=== PATIENT | female | born 1995 | race Hispanic/Latino ===

== ENCOUNTER 2016-08-17 21:05 | Emergency (ER) | payer MEDICAID ==
[2016-08-17 21:13] VITALS: BMI 31.8
[2016-08-17] MEDS ORDERED: Sodium Chloride 0.9% 1,000 ML IV STA (21:29)
--- NOTE | 2016-08-17 21:34 | ED PDOC ---
Arrival/HPI <Rajesh Morgan - Last Filed: 08/17/16 22:29> - General Historian: Patient <Scott Tarango - Last Filed: 08/18/16 00:40> - General Chief Complaint: Chest Pain Time Seen by Provider: 08/17/16 21:17 - History of Present Illness Narrative History of Present Illness (Text): 08/17/16 21:31 20 y/o female, pmh including tonsillitis, nkda, c/o epigastric pain with nausea/ vomiting x 2 days. Pt. stated that she has been having morning sickness for the past few days, been having burning epigastric pain with nausea and couple vomiting. Pt. has been having pelvic cramp on and off with the lower back soreness, no urinary symptoms, no vaginal bleeding or discharge, no headache or night sweat, no palpitation, no rash, no change in vision, no other medical or psychological complaints. (Scott Tarango) Past Medical History - Provider Review Nursing Documentation Reviewed: Yes - Past History Past History: No Previous - Infectious Disease Hx of Infectious Diseases: None - Tetanus Immunization Tetanus Immunization: Up to Date - Cardiac Hx Cardiac Disorders: No - Pulmonary Hx Asthma: Yes - Neurological Hx Neurological Disorder: No - HEENT Hx HEENT Disorder: Yes (tonsilitis, peritonsilar abscess) Other/Comment: tonsillectomy and adenoidectomy 12/2014 - Renal Hx Renal Disorder: No - Endocrine/Metabolic Hx Endocrine Disorders: No - Hematological/Oncological Hx Blood Disorders: No - Integumentary Hx Dermatological Disorder: No - Musculoskeletal/Rheumatological Hx Musculoskeletal Disorders: No Hx Falls: No - Gastrointestinal Hx Gastrointestinal Disorders: No - Genitourinary/Gynecological Other/Comment: pt takes bcp to regulate menstrual cycle daily - Psychiatric Hx Psychophysiologic Disorder: No Hx Depression: No Hx Emotional Abuse: No Hx Physical Abuse: No Hx Substance Use: No - Past Surgical History Past Surgical History: No Previous - Surgical History Hx Tonsillectomy: Yes Other/Comment: tonsillectomy and adenoidectomy 12/2014 - Anesthesia Hx Anesthesia: No Hx Anesthesia Reactions: No Hx Malignant Hyperthermia: No - Suicidal Assessment Feels Threatened In Home Enviroment: No <Scott Tarango - Last Filed: 08/18/16 00:40> Family/Social History - Physician Review Nursing Documentation Reviewed: Yes Family/Social History: Unknown Family HX Smoking Status: Never Smoked Hx Alcohol Use: No Hx Substance Use: No Hx Substance Use Treatment: No <Scott Tarango - Last Filed: 08/18/16 00:40> Allergies/Home Meds <Rajesh Morgan - Last Filed: 08/17/16 22:29> <Scott Tarango - Last Filed: 08/18/16 00:40> Allergies/Adverse Reactions: Allergies No Known Allergies Allergy (Verified 06/25/15 05:11) Home Medications: Home Meds Medication Instructions Recorded Confirmed Ondansetron ODT [Zofran ODT] 8 mg PO PRN PRN 08/17/16 08/17/16 Review of Systems - Review of Systems Constitutional: absent: Fatigue, Fevers Eyes: absent: Vision Changes ENT: absent: Hearing Changes Respiratory: absent: SOB, Cough Cardiovascular: absent: Chest Pain Gastrointestinal: Abdominal Pain, Nausea, Vomiting. absent: Diarrhea Genitourinary Female: absent: Dysuria, Frequency, Hematuria, Urine Output Changes, Vaginal Bleeding, Vaginal Discharge Musculoskeletal: Back Pain. absent: Arthralgias, Neck Pain, Joint Swelling, Myalgias Skin: absent: Rash, Pruritis, Skin Lesions Neurological: absent: Headache, Dizziness, Focal Weakness <Scott Tarango - Last Filed: 08/18/16 00:40> Physical Exam Vital Signs Reviewed: Yes Temperature: Afebrile Blood Pressure: Normal Pulse: Regular Respiratory Rate: Normal Appearance: Positive for: Well-Appearing, Non-Toxic, Comfortable Pain Distress: Mild Mental Status: Positive for: Alert and Oriented X 3 - Systems Exam Head: Present: Atraumatic, Normocephalic Pupils: Present: PERRL Extroacular Muscles: Present: EOMI Conjunctiva: Present: Normal Ears: Present: NORMAL TM, Normal Canal. No: Erythema Mouth: Present: Moist Mucous Membranes Neck: Present: Normal Range of Motion Respiratory/Chest: Present: Clear to Auscultation, Good Air Exchange. No: Respiratory Distress, Accessory Muscle Use Cardiovascular: Present: Regular Rate and Rhythm, Normal S1, S2. No: Murmurs Abdomen: Present: Tenderness (mild epigastric tenderness,), Normal Bowel Sounds. No: Distention, Peritoneal Signs, Rebound, Guarding Genitourinary/Pelvic Exam: Present: Other (Pt. deferred. ) Back: Present: Normal Inspection. No: CVA Tenderness, Midline Tenderness, Paraspinal Tenderness Upper Extremity: Present: Normal Inspection. No: Cyanosis, Edema Lower Extremity: Present: Normal Inspection. No: Edema Neurological: Present: GCS=15, Speech Normal, Gait Normal, Memory Normal Skin: Present: Warm, Dry, Normal Color. No: Rashes Psychiatric: Present: Alert, Oriented x 3, Normal Insight, Normal Concentration <Scott Tarango - Last Filed: 08/18/16 00:40> Vital Signs Pulse Resp BP Pulse Ox 08/17/16 21:06 79 14 125/73 99 Medical Decision Making <Rajesh Morgan - Last Filed: 08/17/16 22:29> - Lab Interpretations Interpretation: Abnormal lab values (beta hcg 68967) - RAD Interpretation [place] Slabs: Radiologist <Scott Tarango - Last Filed: 08/18/16 00:40> ED Course and Treatment: 08/17/16 21:34 -labs/ua/beta hcg/type and screen -IVF/pepcid/reglan -EKG -Observe and reassess 08/18/16 00:09 -EKG: NSR @ 76 BPM, no ST elevation or depression, no T wave inversion. -Labs are non-significant, lipase within normal limit -Beta hcg 51905 -Sonogram show no acute traumatic findings, 11 weeks and 6 days, FHR 162 BPM -Pain resolved. Pt. has no epigastric and no pelvic pain. -Pt. refused the type and screen as she just had it done last week which she is assure that she is O positive, there is no active bleeding. -Discharge home with macrobid, education on avoid acidic/sour/spicy/fried/ grilled food or drinks, avoid eating 2 hours before sleeping, stay hydrated, follow up with your own pmd and GI within 2 days, return to the ER for any new or worsening signs or symptoms. (Scott Tarango) - Lab Interpretations Lab Results: 08/17/16 21:49 08/17/16 21:49 Lab Results 08/17/16 23:40: Urine Color Yellow, Urine Appearance Sl cloudy, Urine pH 7.0, Ur Specific [place] 1.020, Urine Protein Negative, Urine Glucose (UA) Negative, Urine Ketones Negative, Urine Blood Trace-intact H, Urine Nitrate Negative, Urine Bilirubin Negative, Urine Urobilinogen 0.2, Ur Leukocyte Esterase Moderate H, Urine RBC 0 - 2, Urine WBC 2 - 5, Ur Epithelial Cells 1 - 3, Amorphous Sediment Moderate, Urine Bacteria Small 08/17/16 21:49: Beta HCG, Quant 64210.00 H 08/17/16 21:49: Sodium 138, Potassium 3.6, Chloride 102, Carbon Dioxide 25, Anion Gap 15, BUN 8, Creatinine 0.6, Est GFR ( Amer) > 60, Est GFR (Non- Af Amer) > 60, Random Glucose 98, Calcium 9.9, Total Bilirubin 0.4, AST 36, ALT 54, Alkaline Phosphatase 78, Total Protein 8.0, Albumin 4.3, Globulin 3.7, Albumin/Globulin Ratio 1.2, Lipase 163 08/17/16 21:49: WBC 9.2, RBC 4.53, Hgb 12.8, Hct 36.7, MCV 81.0, MCH 28.3, MCHC 34.9, RDW 14.8 H, Plt Count 288, MPV 9.4, Gran % 52.9, Lymph % (Auto) 41.9 H, Miller % (Auto) 4.4, Eos % (Auto) 0.7 L, Baso % (Auto) 0.1, Gran # 4.86, Lymph # 3.8 H, Miller # 0.4, Eos # 0.1, Baso # 0.01 - RAD Interpretation Radiology Orders: 08/17/16 21:29 AGE [US] Stat [facility] Division of Radiology [address] [place] [address] Tel. no. Patient Name: KESHAWN CROWLEY Pt. Address: [address] [place] [address] Rec #: [id number] [place] [address]: Emelina ISSA,Scott Suero Pt Order Location: ED : 1995 Female Age: 20 Order #: [id number] Reason for exam: pelvic cramp x 3 days Ultrasound AGE Exam Date: 08/17/16 This imaging exam was performed at EXAM: US First Trimester, Transabdominal CLINICAL HISTORY: 20 years old, female; Pain; Other: Chest pain; Gestational age or lmp: LMP 06/08/16 ; Additional info: Pelvic cramp x 3 days TECHNIQUE: Real-time transabdominal obstetrical ultrasound of the maternal pelvis and a first trimester with image documentation. EXAM DATE/TIME: 08/17/2016 9:29 PM COMPARISON: There are no prior studies for comparison. FINDINGS: Uterus: Uterus measures approximately 15.3 x 6.5 x 9.8 cm. Gestation: There is a single living intrauterine gestation with a heart rate of 162 beats per minute. Gestational sac has mean diameter 53.9 mm. [place] rump length measures 15.1 mm. A yolk sac is not identified. Adnexa: There are no adnexal masses Cul-de-sac: There is no free fluid. IMPRESSION: 11 week 6 day single living intrauterine gestation estimated dated delivery 03/02/17 Dictated By: Emilia Lujan MD, MD Dictated Date/Time: 08/17/162310 Signed By: Emilia Lujan MD Date Signed: 2310 Transcribed By: VIOLET Transcribe Date/Time : 08/17/162310 (Scott Tarango) - Medication Orders Current Medication Orders: Discontinued Medications Famotidine (Pepcid) 20 mg IVP STAT STA Stop: 08/17/16 21:30 Last Admin: 08/17/16 22:30 Dose: 20 mg Sodium Chloride (Sodium Chloride 0.9%) 1,000 mls @ 999 mls/hr IV .Q1H1M STA Stop: 08/17/16 22:29 Last Admin: 08/17/16 22:31 Dose: 999 mls/hr Metoclopramide HCl (Reglan) 10 mg IVP STAT STA Stop: 08/17/16 21:30 Last Admin: 08/17/16 22:25 Dose: 10 mg - PA / SALES OFFICE ADMINISTRATOR / Resident Statement / has reviewed & agrees with the documentation as recorded. <Rajesh Morgan - Last Filed: 08/17/16 22:29> - PA / SALES OFFICE ADMINISTRATOR / Resident Statement SHAYE has reviewed & agrees with the documentation as recorded. <Scott Tarango - Last Filed: 08/18/16 00:40> Disposition/Present on Arrival <Rajesh Morgan - Last Filed: 08/17/16 22:29> - Present on Arrival Any Indicators Present on Arrival: No History of DVT/PE: No History of Uncontrolled Diabetes: No Urinary Catheter: No History of Decub. Ulcer: No History Surgical Site Infection Following: None - Disposition Have Diagnosis and Disposition been Completed?: Yes Disposition Time: 23:43 Patient Plan: Discharge <Scott Tarango - Last Filed: 08/18/16 00:40> - Disposition Diagnosis: , UTI (urinary tract infection) Disposition: HOME/ ROUTINE Patient Problems: Current Active Problems Problem Status Onset Gastritis Acute Acute Condition: IMPROVED Additional Instructions: Discharge home with macrobid, education on avoid acidic/sour/spicy/fried/ grilled food or drinks, avoid eating 2 hours before sleeping, stay hydrated, follow up with your own pmd and GI within 2 days, return to the ER for any new or worsening signs or symptoms. Prescriptions: Doxylamine/Pyridoxine HCl (B6) [Indy Galindo 10-10 mg Tablet] 1 each PO DAILY PRN #10 tablet.dr PRN Reason: Other Nitrofurantoin Macrocrystals [Macrobid] 100 mg PO BID #14 cap Referrals: Roselyn Dailey DO [Primary Care Provider] - Follow up with primary Moraima Kasper MD [Staff Provider] - Follow up with primary Elinor Hdz MD, MD [Medical Doctor] - Follow up with primary Forms: WORK NOTE
[2016-08-17 21:35] VITALS: RESP 14
[2016-08-17 21:55] LABS: ADD MANUAL DIFF? NO
[2016-08-17 22:07] LABS: BASO # 0.01 K/mm3 (0.0-2.0); BASO % 0.1 % (0.0-3.0); EOS # 0.1 (0.0-0.7); EOS % 0.7 % (1.5-5.0); GRAN # 4.86 (1.4-6.5); GRAN % 52.9 % (50.0-68.0); HEMATOCRIT 36.7 % (36.0-48.0); LYMPH # 3.8 (1.2-3.4); LYMPH % 41.9 % (22.0-35.0); MEAN CORPUSCULAR HEMOGLOBIN 28.3 pg (25.0-35.0); MEAN CORPUSCULAR HGB CONC 34.9 g/dl (31.0-37.0); MEAN PLATELET VOLUME 9.4 fl (7.0-11.0); MONO # 0.4 (0.1-0.6); MONO % 4.4 % (1.0-6.0); PLATELET COUNT 288 10^3/uL (120.0-450.0); RED CELL DISTRIBUTION WIDTH 14.8 % (11.5-14.5); WHITE BLOOD COUNT 9.2 10^3/ul (4.5-11.0)
[2016-08-17 22:12] LABS: ALB/GLOB RATIO 1.2 (1.1-1.8); ALKALINE PHOSPHATASE 78 U/L (38-133); ALT/SGPT 54 U/L (7-56); AST/SGOT 36 U/L (15-39); BILIRUBIN,TOTAL 0.4 mg/dL (0.2-1.3); BLOOD UREA NITROGEN 8 mg/dL (7-21); CALCIUM 9.9 mg/dL (8.4-10.5); CARBON DIOXIDE 25 mmol/L (21-33); CHLORIDE 102 mmol/L (98-107); GFR AFRICAN-AMERICAN > 60; GLUCOSE,RANDOM 98 mg/dL (70-110); LIPASE 163 U/L (23-300); POTASSIUM 3.6 mmol/L (3.6-5.0); SODIUM 138 mmol/L (132-148)
--- NOTE | 2016-08-17 23:12 | US ---
EXAM: US First Trimester, Transabdominal CLINICAL HISTORY: 20 years old, female; Pain; Other: Chest pain; Gestational age or lmp: LMP 06/08/16 ; Additional info: Pelvic cramp x 3 days TECHNIQUE: Real-time transabdominal obstetrical ultrasound of the maternal pelvis and a first trimester with image documentation. EXAM DATE/TIME: 08/17/2016 9:29 PM COMPARISON: There are no prior studies for comparison. FINDINGS: Uterus: Uterus measures approximately 15.3 x 6.5 x 9.8 cm. Gestation: There is a single living intrauterine gestation with a heart rate of 162 beats per minute. Gestational sac has mean diameter 53.9 mm. [place] rump length measures 15.1 mm. A yolk sac is not identified. Adnexa: There are no adnexal masses Cul-de-sac: There is no free fluid. IMPRESSION: 11 week 6 day single living intrauterine gestation estimated dated delivery 03/02/17
[2016-08-18 00:15] LABS: URINE BILIRUBIN NEGATIVE (NEGATIVE); URINE BLOOD TRACE-INTACT (NEGATIVE); URINE GLUCOSE (UA) NEGATIVE (NEGATIVE); URINE KETONE NEGATIVE (NEGATIVE); URINE LEUKOCYTE ESTERASE MODERATE Leu/uL (NEGATIVE); URINE PROTEIN NEGATIVE mg/dL (<30 mg/dL); URINE UROBILINOGEN 0.2 E.U./dL (<1 E.U./dL)
[2016-08-18 00:17] LABS: URINE APPEARANCE SL CLOUDY (CLEAR); URINE COLOR YELLOW (YELLOW)
[2016-08-18 00:22] LABS: URINE RBC 0 - 2 /hpf (0-2)
[2016-08-18 00:23] LABS: URINE AMORPHOUS SEDIMENT MODERATE; URINE BACTERIA SMALL (NEG)
[2016-08-18 00:48] VITALS: BP 131/75; PULSE 94; TEMP 98.4; O2SAT 98
--- NOTE | 2016-08-18 08:52 | CARD ---
APPROVED REPORT EKG Measurement Heart [id number] <Conclusion> Normal sinus rhythm Normal ECG
== END 2016-08-18 00:53 | disposition home or self-care (01) ==
LOC: ED 21:05
DX: O23.41 Unspecified infection of urinary tract in pregnancy, first trimester (principal); Z3A.11 11 weeks gestation of pregnancy
CPT/HCPCS: 76815; 80053; 81001; 83690; 84702; 85025; 87086; 93005; 96361; 96374; 96375; 99284; J2765; J7040